=== PATIENT | male | born 1945 | race Caucasian/White ===

== ENCOUNTER → 2016-06-19 | Day surgery (SDC) | payer OTHER ==
[~2016-06-19] MED LIST: ASPIRIN EC 325 MG TAB PO ONE; ATROPINE SULFATE 1 MG/10 ML SYR IVP PRN; ATROPINE SULFATE 1 MG/10 ML SYR ONE; BENZOCAINE UNIT DOSE SPRAY HURRICAINE MM ONE; DIAZEPAM 5 MG TAB ONE; DIAZEPAM 5 MG TAB PO ONE; FAMOTIDINE 20 MG TAB ONE; FAMOTIDINE 20 MG TAB PO ONE; HEPARIN 10,000 UNIT/10 ML MDV ONE; HYDROCODONE/APAP 5/325 TAB PO PRN; IOPAMIDOL (ISOVUE-370) 150 ML BTL IV ONE; LIDOCAINE 1% 30 ML SDV ONE; MIDAZOLAM 2 MG/2 ML VIAL IVP ONE; MIDAZOLAM 2 MG/2 ML VIAL ONE; NITROGLYCERIN 0.4 MG BTL SL PRN; NS 1,000 ML IV ONE; ONDANSETRON 4 MG/2 ML VIAL IVP PRN; OXYCODONE/APAP 5/325 TAB PO PRN; VERAPAMIL 5 MG/2 ML VIAL ONE; diphenhydrAMINE 25 MG CAP PO ONE; fentaNYL 100 MCG/2 ML INJ IVP ONE; fentaNYL 100 MCG/2 ML INJ ONE
--- NOTE | 2016-06-19 08:27 | CPEKG ---
Heart Rate: 69 RR Interval: 870 P-R Interval: 236 QRSD Interval: 96 QT Interval: 484 QTC Interval: 519 P Leslie: 0 QRS Leslie: -38 T Wave Leslie: 81 EKG Severity - ABNORMAL ECG - EKG Impression: SINUS RHYTHM EKG Impression: VENTRICULAR BIGEMINY EKG Impression: FIRST DEGREE AV BLOCK EKG Impression: PROBABLE LEFT ATRIAL ABNORMALITY EKG Impression: LEFT AXIS DEVIATION Electronically Signed By: Ever Castorena 20-Jun-2016 08:31:06
[2016-06-19 08:45] LABS: ADD DIFF? NO; ADD MORPH? NO; ADD SCAN? NO; ATYPICAL LYMPHOCYTE FLAG 60 (0-99); FRAGMENT RBC FLAG 0 (0-99); HEMATOCRIT 46.9 % (40.0-51.0); HEMOGLOBIN 16.1 g/dL (13.7-17.5); LEFT SHIFT FLG 0 (0-99); LIPEMIA HEMOLYSIS FLAG 90 (0-99); MEAN CELL HEMOGLOBIN 30.6 pg (27.9-34.1); MEAN CELL HEMOGLOBIN CONCENTR. 34.3 g/dL (32.4-36.7); MEAN PLATELET VOLUME 11.3 fL (8.7-11.7); PLATELET CLUMPS FLAG 0 (0-99); PLATELET COUNT 163 10^3/uL (150-400); RED BLOOD CELL COUNT 5.27 10^6/uL (4.40-6.38); RED CELL DISTRIBUTION WIDTH 13.4 % (11.5-15.2)
[2016-06-19 08:53] LABS: INR 1.15 (0.83-1.16); PROTIME(PATIENT) 14.7 SEC (12.0-15.0)
[2016-06-19 09:07] LABS: ANION GAP 12 mEq/L (8-16); CALCIUM 9.2 mg/dL (8.5-10.4); CARBON DIOXIDE 29 mEq/l (22-31); CHLORIDE 104 mEq/L (97-110); CHOLESTEROL 174 mg/dL (140-220); CHOLESTEROL/HDL RATIO 2.76 RATIO (1.00-4.97); GLOMERULAR FILTRATION RATE > 60; GLUCOSE 99 mg/dL (70-100); HIGH DENSITY LIPOPROTEIN 63 mg/dL (40-65); LDL/HDL RATIO 1.57 RATIO (1.00-3.64); LOW DENSITY LIPOPROTEIN 99 mg/dL (80-100); MAGNESIUM 2.1 mg/dL (1.6-2.3); NON-HIGH DENSITY LIPOPROTEIN 111 mg/dL (90-129); SODIUM 145 mEq/L (134-144); TRIGLYCERIDE 61 mg/dL (40-150); VERY LOW DENSITY LIPOPROTEINS 12 mg/dL (8-25)
--- NOTE | 2016-06-19 11:16 | PDDXCAT ---
Diagnostic Cath Note - . Date: 06/19/16 [employer] Manager: Valarie Indication: other (Preoperative for planned valvular heart surgery.) - Procedure Access: right groin Procedure: left heart catheterization, coronary angiography, left ventriculogram , right heart catheterization - Materials Left Heart Cath size: 7F Left Heart Cath materials: standard multipack (JL4, JR4, pigtail) Right Heart Cath size: 7F Right Heart Cath materials: PWP catheter - Findings-Left Heart Catheterization LM: The left main is a large caliber vessel. There is appropriate bifurcation into the left anterior descending and circumflex distributions. There is no angiographic evidence of disease. LAD: The left anterior descending is a large caliber vessel. The 1st diagonal is large and significant. The 2nd is small and surgically insignificant. There are luminal irregularities with no obstructive lesions. LCX: The circumflex is large caliber and dominant. There are 2 obtuse marginal branches, a posterolateral and a small PDA noted. Again, luminal irregularities are appreciated without obstructive lesions. RCA: The right coronary artery is small and non dominant. No significant disease is noted. EDP: 176/12/15 mmHg. LVEF: 50-55%. Mild global hypokinesis. Wall motion: Mild global hypokinesis. 1+ mitral regurgitation. - Findings-Right Heart Catheterization RA: 7 mmHg. RV: 49/4/9 mm Hg. PA: 52/17/32 mmHg. PAOP: Mean pulmonary capillary wedge pressure was 16 mmHg with V-waves of 23 mmHg. AO: 177/113/128 mmHg. CO: 5.13 liters/minute. CI: 2.51 liters/minute per meter squared. Complications: None Estimated blood loss: <50ml Closure method: Angioseal Assessment: No significant obstructive coronary disease in a left-dominant system. Mildly reduced left ventricular systolic function with mild global hypokinesis. Evidence of moderate pulmonary hypertension with near normal pulmonary artery occlusive pressure. Normal cardiac output. Plan: Per Dr. Salgado he will be considered for mitral and tricuspid valve repair/ replacement. Intervention: None. Patient Problems: Problems Problem Status Onset Atrial fibrillation and flutter Acute Weakness Acute
== END | disposition home or self-care (01) ==
LOC: FCATH 07:59
PROVIDERS: ATTEND Internal Medicine Interventional Cardiology
DX: Z13.6 Encounter for screening for cardiovascular disorders (principal); I34.1 Nonrheumatic mitral (valve) prolapse; I36.1 Nonrheumatic tricuspid (valve) insufficiency; I27.2 Other secondary pulmonary hypertension
CPT/HCPCS: C1760; J0461; J1644; J2250; J3010; Q9967

== ENCOUNTER 2016-07-16 07:14 | Observation (INO) | payer OTHER ==
[2016-07-16] MEDS ORDERED: NS 1,000 ML IV ONE (07:16)
[2016-07-16] MEDS ORDERED: MIDAZOLAM 2 MG/2 ML VIAL IVP ONE (07:16)
[2016-07-16] MEDS ORDERED: BACITRACIN IRRIGATION/NS 50,000 UNITS/1,000 ML BTL IRR ONE (07:17)
[2016-07-16] MEDS ORDERED: ceFAZolin 2 GM/DEXTROSE 100 ML IV ONE (07:17)
[2016-07-16] MEDS ORDERED: LIDOCAINE 1% 30 ML SDV ONE ×2 (07:27→10:19)
[2016-07-16] MEDS ORDERED: BUPIVACAINE 0.5% 30 ML SDV ONE ×2 (07:27→10:19)
--- NOTE | 2016-07-16 07:39 | CPEKG ---
Heart Rate: 69 RR Interval: 870 P-R Interval: 240 QRSD Interval: 100 QT Interval: 464 QTC Interval: 497 P Ar[place]: 51 QRS [place]nett: -40 T Wave Arnett: 68 EKG Severity - ABNORMAL ECG - EKG Impression: SINUS RHYTHM EKG Impression: FIRST DEGREE AV BLOCK EKG Impression: LEFT AXIS DEVIATION Electronically Signed By: Yeimy Tsai 16-Jul-2016 08:33:17
[2016-07-16 07:49] LABS: % IMMATURE GRANULYOCYTES 0.2 % (0.0-1.1); ABSOLUTE IMMATURE GRANULOCYTES 0.01 10^3/uL (0.00-0.10); ADD DIFF? NO; ADD MORPH? NO; ADD SCAN? NO; ATYPICAL LYMPHOCYTE FLAG 30 (0-99); FRAGMENT RBC FLAG 0 (0-99); HEMATOCRIT 46.9 % (40.0-51.0); LEFT SHIFT FLG 0 (0-99); LIPEMIA HEMOLYSIS FLAG 90 (0-99); MEAN CELL HEMOGLOBIN 30.8 pg (27.9-34.1); MEAN CELL HEMOGLOBIN CONCENTR. 34.1 g/dL (32.4-36.7); MEAN CELL VOLUME 90.2 fL (81.5-99.8); MEAN PLATELET VOLUME 10.9 fL (8.7-11.7); PLATELET CLUMPS FLAG 10 (0-99); PLATELET COUNT 164 10^3/uL (150-400); RED CELL DISTRIBUTION WIDTH 13.7 % (11.5-15.2)
[2016-07-16 07:58] LABS: INR 1.11 (0.83-1.16); PROTIME(PATIENT) 14.2 SEC (12.0-15.0)
[2016-07-16 07:59] LABS: APTT 28.4 SEC (23.0-38.0)
[2016-07-16 08:03] LABS: ANION GAP 10 mEq/L (8-16); CALCIUM 9.1 mg/dL (8.5-10.4); CARBON DIOXIDE 27 mEq/l (22-31); CHLORIDE 105 mEq/L (97-110); GLOMERULAR FILTRATION RATE > 60; GLUCOSE 91 mg/dL (70-100); MAGNESIUM 1.9 mg/dL (1.6-2.3); POTASSIUM 3.7 mEq/L (3.5-5.2); SODIUM 142 mEq/L (134-144)
[2016-07-16] MEDS ORDERED: PROPOFOL 200 MG/20 ML VIAL ONE ×2 (08:33→10:19)
[2016-07-16] MEDS ORDERED: fentaNYL 100 MCG/2 ML INJ ONE (08:33)
[2016-07-16] MEDS ORDERED: ROCURONIUM 100 MG/10 ML VIAL ONE (08:33)
[2016-07-16] MEDS ORDERED: PROPOFOL/EMULSION 500 MG/50 ML BOTTLE IV ONE (08:52)
[2016-07-16] MEDS ORDERED: ISOPROTERENOL HCL 0.2 MG/ML 5ML AMP ONE (09:30)
[2016-07-16] MEDS ORDERED: IOPAMIDOL (ISOVUE-300) 100 ML BTL ONE (10:19)
[2016-07-16] MEDS ORDERED: ACETAMINOPHEN 325 MG TAB PO PRN (10:31)
[2016-07-16] MEDS ORDERED: OXYCODONE/APAP 5/325 TAB PO PRN (10:31)
[2016-07-16] MEDS ORDERED: AMIODARONE HCL 200 MG TAB PO SCH (10:45)
[2016-07-16] MEDS ORDERED: ATROPINE SULFATE 1 MG/10 ML SYR ONE (11:35)
--- NOTE | 2016-07-16 11:41 | CPEKG ---
Heart Rate: 80 RR Interval: 750 P-R Interval: 184 QRSD Interval: 174 QT Interval: 484 QTC Interval: 559 P [place]: 112 QRS [place]: 269 T Wave [place]: 87 EKG Severity - ABNORMAL ECG - EKG Impression: ATRIAL-VENTRICULAR DUAL-PACED RHYTHM Preliminary Awaiting MD Review
[2016-07-16] MEDS ORDERED: LISINOPRIL 20 MG TAB PO ONE (14:15)
--- NOTE | 2016-07-16 15:29 | EPPROC ---
Electrophysiology Procedure Note: DIAGNOSTIC ELECTROPHYSIOLOGIC STUDY INDICATION: Nonsustained VT Frequent PVC Dizziness PROCEDURE: Catheters & Anesthesia: The patient arrived in the Electrophysiology Laboratory in the fasting state. The right clavicular region, right groin, & left groin area were prepped & draped in the usual sterile manner. Sedation was administered by Dr. Dennis Lee. Appropriate non-invasive blood pressure, pulse oximetry & end-tidal CO2 monitoring was established. All catheters were placed percutaneously using the modified Seldinger technique , and advanced into position under fluoroscopic guidance. One #7 Yi deflectable octapolar electrode catheter was advanced to the His-bundle position via the left femoral vein (2mm spacing). This was placed at RV apex as well. Programmed stimulation was performed from the right ventricle. No sustained reentrant tachycardia was induced during programmed stimulation at baseline or during graded doses of isoproterenol up to 4 mcg/min. Ventricular programmed stimulation was performed using standard protocol (2 pacing sites, 2 basic cycle lengths, up to 3 extrastimuli at twice pacing threshold). Ventricular burst pacing and long/short sequence pacing was also performed. Nonsustained polymorphic VT was induced. Frequent PVC, RBBB, inferior axis morphology were seen. Patient had no perfusion during bigeminal PVC which occurred frequently with effective perfusing pulse in the 30-35 bpm range. Ventricular overdrive pacing at 80 bpm suppressed the PVC. Accelerated idioventricular rhythm, 1 episode, CL 700-900 ms occurred for 30 s spontaneously. This was different morphology than the PVCs. The catheters were removed. The patient left on the table for pacemaker placement. Vascular access sheaths were removed in the holding area. There were no apparent complications. CONCLUSIONS 1. No sustained ventricular arrhythmias induced. 2. Frequent PVC, often bigeminal, suppressed by ventricular pacing. 3. No sustained arrhythmias induced. 4. No apparent complications. Patient Problems: Problems Problem Status Onset Bradycardia Acute Atrial fibrillation and flutter Acute Weakness Acute
--- NOTE | 2016-07-16 15:31 | EPPROC ---
Electrophysiology Procedure Note: PROCEDURE PERFORMED: 1. Implantation of an A/V Pacemaker 2. Subclavian vein angiography 3. Fluoroscopy INDICATION: Bradycardia PROCEDURE NOTE: Patient presented to the cardiac catheterization laboratory in a fasting, post absorptive state . EP study was done just prior to pacemaker implantation. Dr. Dennis Lee administered sedation. The left infraclavicular area was prepped and draped in the usual sterile fashion. Lidocaine plus bupivacaine was used for local anesthesia. Left subclavian venography was performed by injection of iodinated contrast into the left antecubital vein. This was done to assure patency of the vein and also to assess for any anatomical aberrations. Using a combination of blunt and sharp dissection and electrocautery, the dissection was carried down to the prepectoral fascia. A pocket was made in this anatomical plane. All bleeding was controlled with electrocautery. The pocket was packed with gauze soaked in antibiotic solution. Fluoroscopy was utilized during the entire procedure for venous access and placement of the leads. Using a direct stick technique the left extrathoracic axillary vein was accessed with 2 sticks using the modified Seldinger technique. Placement of the guidewires into the venous system was confirmed by low-pressure blood return and also by visualizing the guidewires advancing into the inferior vena cava. A purse string suture was applied around the guidewires. Two #7 Fijian sheaths were advanced under fluoroscopic guidance over the guidewire. An active fixation ventricular lead was advanced into the right ventricular apex and screwed in place. An active fixation atrial lead was advanced into the right atrial appendage and screwed in place. The peel away sheaths were removed. Pacing thresholds, sensing parameters and lead impedances were measured. There was no diaphragmatic stimulation at maximum output. The leads were sutured to the prepectoral fascia with 3 nonabsorbable sutures each. The pocket was again inspected for any bleeding. The leads were attached to the pacemaker securely. The pacemaker was inserted into the pocket and secured in place with a nonabsorbable suture. Post pacing, while atrial pacing at 80 ppm, PVC frequency decreased significantly. Fluoroscopy was performed in [place] and [place] planes to verify right-sided placement of the leads. Also fluoroscopy of the pacemaker pocket was performed. The pacemaker pocket was closed in 3 layers with absorbable monocryl sutures and betty. Appropriate dressing was applied. The patient left the cardiac catheterization laboratory in stable condition. Serial Numbers: 1. Device: SJM Assurity [id number] 2. Atrial Lead: SJM Tendril [id number] CM SN [id number] 3. Ventricular Lead: SJM Tendril [id number] Stimulation Thresholds & Impedance Measurements: 1. Atrial Lead 0.4 V 0.5 ms 0.7 mA P 4.6 mV 505 ohm 2. Ventricular Lead 0.5 V 0.5 ms 0.7 mA R 15.1 mV 643 ohm Logan Pacing Parameters 1. Pacing mode: DDDR 2. Lower rate: 80 ppm 3. Upper tracking rate: 120 ppm 4. Upper sensor rate: 120 ppm Patient Problems: Problems Problem Status Onset Bradycardia Acute Atrial fibrillation and flutter Acute Weakness Acute
[2016-07-16] MEDS: CHOLECALCIFEROL VIT D3 2,000 UNITS TAB/CAP PO SCH (16:47)
[2016-07-16] MEDS: NEBIVOLOL HCL 5 MG TAB PO SCH (16:47)
[2016-07-16] MEDS ORDERED: NEBIVOLOL HCL 5 MG TAB PO ONE (18:15)
[2016-07-16] MEDS: DOFETILIDE 0.125 MG CAP PO SCH (20:35)
[2016-07-16] MEDS ORDERED: MAGNESIUM OXIDE 400 MG TAB PO SCH (21:00)
[2016-07-17 04:04] LABS: % IMMATURE GRANULYOCYTES 0.1 % (0.0-1.1); ABSOLUTE IMMATURE GRANULOCYTES 0.01 10^3/uL (0.00-0.10); ADD DIFF? NO; ADD MORPH? NO; ADD SCAN? NO; ATYPICAL LYMPHOCYTE FLAG 10 (0-99); FRAGMENT RBC FLAG 0 (0-99); HEMATOCRIT 42.7 % (40.0-51.0); HEMOGLOBIN 14.9 g/dL (13.7-17.5); LEFT SHIFT FLG 0 (0-99); LIPEMIA HEMOLYSIS FLAG 90 (0-99); MEAN CELL HEMOGLOBIN 31.2 pg (27.9-34.1); MEAN CELL HEMOGLOBIN CONCENTR. 34.9 g/dL (32.4-36.7); MEAN CELL VOLUME 89.3 fL (81.5-99.8); MEAN PLATELET VOLUME 11.9 fL (8.7-11.7); PLATELET CLUMPS FLAG 0 (0-99); PLATELET COUNT 143 10^3/uL (150-400); RED BLOOD CELL COUNT 4.78 10^6/uL (4.40-6.38); RED CELL DISTRIBUTION WIDTH 13.7 % (11.5-15.2)
[2016-07-17 04:18] LABS: INR 1.2 (0.83-1.16); PROTIME(PATIENT) 15.2 SEC (12.0-15.0)
[2016-07-17 04:30] LABS: ANION GAP 10 mEq/L (8-16); CALCIUM 8.5 mg/dL (8.5-10.4); CARBON DIOXIDE 23 mEq/l (22-31); CHLORIDE 105 mEq/L (97-110); CREATININE 0.9 mg/dL (0.7-1.3); GLOMERULAR FILTRATION RATE > 60; GLUCOSE 89 mg/dL (70-100); SODIUM 138 mEq/L (134-144)
[2016-07-17] MEDS: DOFETILIDE 0.125 MG CAP PO SCH (07:31)
[2016-07-17] MEDS: NEBIVOLOL HCL 5 MG TAB PO SCH (07:36)
--- NOTE | 2016-07-17 08:55 | CPEKG ---
Heart Rate: 80 RR Interval: 750 P-R Interval: 180 QRSD Interval: 172 QT Interval: 484 QTC Interval: 559 QRS [place]: -96 T Wave [place]: 82 EKG Severity - ABNORMAL ECG - EKG Impression: ATRIAL-PACED RHYTHM EKG Impression: RIGHT BUNDLE BRANCH BLOCK Electronically Signed By: Yeimy Tsai 17-Jul-2016 17:04:15
[2016-07-17] MEDS ORDERED: GLUCOSAMINE SULF 500 MG CAP PO SCH (09:00)
[2016-07-17] MEDS ORDERED: OMEGA-3 FATTY ACIDS 1,000 MG CAP PO SCH (09:00)
[2016-07-17] MEDS ORDERED: ASPIRIN EC 81 MG TAB PO SCH (09:00)
[2016-07-17] MEDS ORDERED: LISINOPRIL 40 MG TAB PO SCH (09:00)
[2016-07-17] MEDS ORDERED: POTASSIUM CL 20 MEQ/15 ML UDCUP PO SCH (09:00)
[2016-07-17] MEDS ORDERED: APIXABAN 5 MG TAB PO SCH (09:15)
[2016-07-17 11:34] VITALS: BP 124/84; PULSE 96; RESP 16; TEMP 97.8; O2SAT 96
[2016-07-17] MEDS: CHOLECALCIFEROL VIT D3 2,000 UNITS TAB/CAP PO SCH (12:23)
--- NOTE | 2016-07-17 15:23 | GDS ---
[f rep st] DISCHARGE SUMMARY ADMISSION DIAGNOSES: 1. Paroxysmal atrial fibrillation. 2. History of nonsustained ventricular tachycardia based off Holter monitoring. 3. Mitral regurgitation. 4. Frequent premature ventricular contractions. 5. Symptomatic bradycardia. DISCHARGE DIAGNOSES: 1. Paroxysmal atrial fibrillation. 2. Status post electrophysiology study with no malignant arrhythmias identified. 3. Premature mitral regurgitation. 4. Symptomatic bradycardia. 5. Status post dual chamber [employer]. Daniel PPM implantation with atrial and right ventricular lead implantation. PROCEDURES DONE DURING HOSPITALIZATION: 1. Electrocardiogram. 2. Chest x-ray. 3. Electrophysiology study showing no sustained ventricular arrhythmias induced , no sustained malignant arrhythmias, frequent PVCs, bradycardia. 4. Pacemaker implantation [employer]. Daniel device with [employer]. Daniel right atrium and right ventricular lead implantation. 5. Chest x-ray. ADMISSION BRIEF HISTORY: Please see H and P. The patient is a 71-year-old male with history of paroxysmal atrial fibrillation noted to be bradycardic with frequent episodes of fatigue and dizziness, with often frequent premature ventricular contractions. He was noted off recent Holter monitoring to have a 14-beat run of ventricular tachycardia seen at night at a rate of 144 beats per minute. He was evaluated by Dr. Mcclellan who felt that he was an appropriate candidate to undergo electrophysiology study and, if needed, AICD implantation. HOSPITAL COURSE: Patient was admitted through the CVC, prepped for procedure, and taken to the electrophysiology lab where Dr. Mcclellan performed EP study on him. It was found that no sustainable ventricular arrhythmias was induced. Patient was noted to have frequent PVCs that were noted to be suppressed by ventricular pacing. No other sustainable malignant arrhythmias were noted. No complications from procedure. Case was ended, and then patient was prepped for pacemaker implantation where Dr. Mcclellan successfully implanted a [employer]. Daniel pacemaker with right atrial and right ventricular lead, no complications. The patient was transferred back to the CVC and ultimately to the PCU for overnight observation. Unfortunately, patient did convert into atrial fibrillation during the evening, but no other malignant arrhythmias noted on monitor. The patient denies any chest pain or shortness of breath. He has been up and walking the unit without any symptoms. Denies any further episodes of lightheadedness. PHYSICAL EXAMINATION: Done today: GENERAL APPEARANCE: Medium build, well- groomed, male. He is alert and oriented to person, place, time, and situation. Appears to be under no acute distress. VITAL SIGNS: Blood pressure of 132/78, heart rate of 80, atrial fibrillation with ventricular paced beats per monitor, respirations 15, saturating 95% on room air, temperature 36.9 degrees Celsius. HEENT: Head is normocephalic. Lips and tongue are pink and moist with no signs of cyanosis. Conjunctivae pink. NECK: Trachea is midline, +2 carotid pulses bilaterally, no auscultated bruits, no jugular vein distention. RESPIRATORY: Lungs clear to auscultation. No rhonchi , rales or wheezes. No accessory muscle use, no intercostal muscle retraction noted. CARDIAC: Regular rate, regular rhythm. S1, S2, +2/6 systolic murmur noted along the left sternal border. No S3. ABDOMEN: Soft, nontender, bowel sounds x4 quadrants, no organomegaly, no palpable masses. SKIN: Tucker, warm, dry. No cyanosis, no clubbing, no peripheral edema. VASCULAR: +2 carotids bilateral, +2 radials bilateral, +2 dorsal pedal and posterior tibial bilateral. Pacemaker insertion site, left anterior chest, dressing change done , incision intact with betty with no redness swelling drainage ecchymosis or hematoma. Left groin site, electrophysiology catheter insertion site, with no redness, swelling, drainage, ecchymosis, or hematoma, no auscultated bruit over site. NEURO: Cranial nerves 2-12 grossly intact. LABORATORY STUDIES: Drawn from today show WBC 6.73, hemoglobin of 14.9, hematocrit of 42.7, platelet count of 143. INR 1.20. Sodium 138, potassium 4.0 , chloride 105, CO2 of 23, BUN 13, creatinine 0.9, glucose 89, calcium 8.5. STUDIES: Electrophysiology and pacemaker implantation. As mentioned above, electrocardiogram today shows underlying atrial fibrillation with ventricular paced beats. Chest x-ray done postoperatively shows no acute cardiopulmonary process, pacemaker implantation without pneumothorax. Device check done by pacemaker rep showing functioning within normal limits. PENDING RESULTS: Chest x-ray from this a.m. DISCHARGE DISPOSITION: Patient will be discharged home. After getting a.m. chest x-ray, he will be discharged home in stable condition. He is under activity restrictions of not lifting more than 10 pounds for the next week, not lifting the left arm higher than shoulder height for the next 6 weeks. DISCHARGE MEDICATIONS: Please see discharge medication reconciliation sheet, note patient has been started on all his home medications, and he has been started on Bystolic at 5 mg p.o. q. day for which he has received a prescription. DISCHARGE INSTRUCTIONS: Post electrophysiology and pacemaker implantation discharge instructions went over with the patient including monitoring for signs of infection, activity restrictions, medication compliance. Patient does have a followup device check and wound check set for next Saturday at our [facility]. If he remains in atrial fibrillation, at that time, we have also scheduled him to undergo JOSE ANTONIO cardioversion the following Saturday with Dr. Mcclellan. He also has a followup office appointment with Dr. Mcclellan in mid August. At the time, patient and verbalize understanding all instructions. They have been told that if any problems or concerns come up post discharge, they are to call our office or return to the hospital. Hospital discharge pending results of chest x-ray, if no signs of pneumothorax, or no acute cardiopulmonary process. Patient will be discharged. Total time spent on discharge greater than 30 minutes. /[id number]/MODL MTDD
== END 2016-07-17 12:54 | disposition home or self-care (01) ==
LOC: FCATH 07:14 → F2W 13:10
PROVIDERS: ADMIT Internal Medicine Cardiovascular Disease; ATTEND Internal Medicine Cardiovascular Disease
DX: I48.0 Paroxysmal atrial fibrillation (principal); I34.0 Nonrheumatic mitral (valve) insufficiency; R00.1 Bradycardia, unspecified; I47.2 Ventricular tachycardia
CPT/HCPCS: 71010; 71020; 93005; 93621; 93623; C1731; G0378; C1785; C1898; J0461; J0690; J1644; J2250; J2704; J3010; Q9967

== ENCOUNTER 2017-07-23 08:03 | Day surgery (SDC) | payer OTHER ==
[2017-07-23] MEDS ORDERED: BENZOCAINE UNIT DOSE SPRAY HURRICAINE MM ONE (08:08)
[2017-07-23] MEDS ORDERED: MIDAZOLAM 2 MG/2 ML VIAL IVP ONE (08:08)
[2017-07-23] MEDS ORDERED: diphenhydrAMINE 25 MG CAP PO ONE (08:08)
[2017-07-23] MEDS ORDERED: ASPIRIN EC 325 MG TAB PO ONE (08:08)
[2017-07-23] MEDS ORDERED: NS 1,000 ML IV ONE (08:08)
[2017-07-23] MEDS ORDERED: FAMOTIDINE 20 MG TAB PO ONE (08:08)
[2017-07-23] MEDS ORDERED: DIAZEPAM 5 MG TAB PO ONE (08:08)
[2017-07-23] MEDS ORDERED: fentaNYL 100 MCG/2 ML INJ IVP ONE (08:08)
--- NOTE | 2017-07-23 08:28 | CPEKG ---
Heart Rate: 74 RR Interval: 811 QRSD Interval: 146 QT Interval: 560 QTC Interval: 622 P [place]: 0 QRS [place]: -43 T Wave [place]: 162 EKG Severity - ABNORMAL ECG - EKG Impression: ATRIAL-VENTRICULAR DUAL-PACED COMPLEXES EKG Impression: NONSPECIFIC IVCD WITH LAD EKG Impression: LVH WITH SECONDARY REPOLARIZATION ABNORMALITY Electronically Signed By: Arsenio Rutherford 23-Jul-2017 10:36:01
[2017-07-23] MEDS ORDERED: fentaNYL 100 MCG/2 ML INJ ONE (08:31)
[2017-07-23] MEDS ORDERED: LIDOCAINE 1% 300 MG/30 ML SDV ONE (08:31)
[2017-07-23] MEDS ORDERED: MIDAZOLAM 2 MG/2 ML VIAL ONE (08:32)
[2017-07-23] MEDS ORDERED: IOPAMIDOL (ISOVUE-370) 150 ML BTL IV ONE (08:32)
[2017-07-23 08:40] LABS: PLATELET COUNT 166 10^3/uL (150-400)
[2017-07-23 08:49] LABS: INR 1.09 (0.83-1.16); PROTIME(PATIENT) 14.3 SEC (12.0-15.0)
[2017-07-23] MEDS ORDERED: VERAPAMIL 5 MG/2 ML VIAL ONE (09:03)
[2017-07-23] MEDS ORDERED: HEPARIN 10,000 UNIT/10 ML MDV (1,000 UNIT/ML) ONE (09:03)
--- NOTE | 2017-07-23 09:03 | PDPROPOC ---
Sedation Plan of Care Sedation Plan of Care: vital signs stable, mental status noted, patient educated of risks, benefits, alternatives, patient can tolerate sedation ASA Classification: ASA 1 Planned drugs: fentanyl, midazolam Mallampati Score: Class 1 Mallampati Reference Image: Patient passed 3-3-2 rule?: Yes
--- NOTE | 2017-07-23 09:04 | PDGENHP ---
History & Physical Chief Complaint: Fatigue History of Present Illness: 72-year-old known mitral regurgitation mild coronary disease here for preoperative assessment. Relevant Physical Exam: 110/70, heart rate 70,. No JVP. Chest clear to auscultation percussion. Cardiac exam revealed regular rate and rhythm with 3/ 6 systolic murmur. Extremities are free of edema. Neurologic examination reveals no muscle weakness with facial symmetry. Skin no rash. Cardiorespiratory Assessment: No contraindications to cardiac catheterization today. Right left heart catheterization with JOSE ANTONIO for preoperative assessment.
--- NOTE | 2017-07-23 10:53 | PDDXCAT ---
Diagnostic Cath Note - . Date: 07/23/17 Stabilizing Machine Operator: Damian Indication: other (Mitral regurgitation class3 CHF. Pre-op eval.) - Procedure Access: left wrist Procedure: left heart catheterization, coronary angiography, left ventriculogram , right heart catheterization - Materials Left Heart Cath size: 6F Left Heart Cath materials: JL4.5, JR4.0, pigtail Right Heart Cath size: 5F Right Heart Cath materials: PWP catheter - Findings-Left Heart Catheterization LM: Unobstructed LAD: Unobstructed LCX: Dominant: Unobstructed RCA: Non dominant: Unobstructed EDP: 11 mm of mercury LVEF: 63 % with no demonstrable mitral regurgitation Wall motion: Normal - Findings-Right Heart Catheterization RA: 7 mm of mercury RV: 42/7 mm of mercury PA: 42/18 mm of mercury PAOP: 12 mm of mercury Complications: None Estimated blood loss: <50ml Closure method: TR Band Assessment: 1. Angiographically normal coronary arteries. 2. Normal LV systolic function without demonstrable mitral regurgitation by contrast. 3. Normal left ventricular end-diastolic pressure with preserved ejection fraction. 4. Mild pulmonary hypertension with no exacerbation with hand exercise. Plan: Premedication with 5000 units of heparin. Sedation 1 mg Versed, 50 mcg fentanyl. Contrast 75 cc. Radiation 392 mGy. Intervention: Continued medical therapy. Review at Case Conference. Patient Problems: Problems Problem Status Onset Bradycardia Acute Atrial fibrillation and flutter Acute Weakness Acute
--- NOTE | 2017-07-23 11:36 | ECHO ---
[email or web address] [id number] Main: [phone] Fax: Transthoracic Echocardiogram Name: SEEMA LAM MR#: [id number] Study Date: 07/23/2017 Study Time: 09:40 AM Date of : 1945 Age: 72 year(s) Height: ( ) Weight: ( ) BSA: Gender: Male Examination: JOSE ANTONIO Indication: Shortness of breath Image Quality: Contrast: Requested by: Gustavo Salgado BP: / Heart Rate: Rhythm: Indication: Shortness of breath Procedure Staff Agriculture Professor: Yoseph Lopez RDCS Reading Physician: Gustavo Salgado MD Requesting Provider: Conclusions: No pericardial effusion. Preserved left ventricular systolic function. Moderate mitral regurgitation with 2 centrally directed jets. Mild bileaflet prolapse. Measurements: Chambers Valvular Assessment AV/MV Valvular Assessment TV/PV Normal Normal Normal Name Value Range Name Value Range Name Value Range Continued Measurements: Findings: Left Ventricle: Normal global systolic LV function. Right Atrium: The right atrium is normal in size. Mitral Valve: The mitral valve leaflets appear myxomatous. There is moderate MR with two prominate jets.. Aortic Valve: The aortic valve is tri-leaflet and functions normally. Trivial aortic valve regurgitation. Tricuspid Valve: The tricuspid valve is normal in appearance and function. Pulmonic Valve: The pulmonic valve is normal in appearance and function. There is no pulmonic regurgitation seen. Aorta: The aorta is normal. Pericardium: No pericardial effusion. Patient: SEEMA LAM Study Date: 07/23/2017 Page 1 of 2 09:40 AM (No Signature Object) Patient: SEEMA LAM Study Date: 07/23/2017 Page 2 of 2 09:40 AM [id number]
[2017-07-23 14:44] VITALS: BP 133/85
== END 2017-07-23 17:20 | disposition home or self-care (01) ==
LOC: FCATH 08:03
PROVIDERS: ATTEND Internal Medicine Interventional Cardiology
PROC: 4A023N8 Measurement of Cardiac Sampling and Pressure, Bilateral, Percutaneous Approach (ICD-10-PCS; principal; 2017-07-23)
PROC: B2151ZZ Fluoroscopy of Left Heart using Low Osmolar Contrast (ICD-10-PCS; principal; 2017-07-23)
PROC: B2111ZZ Fluoroscopy of Multiple Coronary Arteries using Low Osmolar Contrast (ICD-10-PCS; principal; 2017-07-23)
PROC: B245ZZ4 Ultrasonography of Left Heart, Transesophageal (ICD-10-PCS; principal; 2017-07-23)
DX: I34.0 Nonrheumatic mitral (valve) insufficiency (principal); I50.33 Acute on chronic diastolic (congestive) heart failure; I27.20 Pulmonary hypertension, unspecified; R53.83 Other fatigue; R06.02 Shortness of breath; I25.10 Atherosclerotic heart disease of native coronary artery without angina pectoris; I48.91 Unspecified atrial fibrillation; I36.1 Nonrheumatic tricuspid (valve) insufficiency; G47.33 Obstructive sleep apnea (adult) (pediatric); I11.0 Hypertensive heart disease with heart failure; K21.9 Gastro-esophageal reflux disease without esophagitis; M10.9 Gout, unspecified; Z79.01 Long term (current) use of anticoagulants; Z79.82 Long term (current) use of aspirin; Z87.442 Personal history of urinary calculi; Z82.49 Family history of ischemic heart disease and other diseases of the circulatory system; Z95.810 Presence of automatic (implantable) cardiac defibrillator
CPT/HCPCS: J1644; J2250; J3010; Q9967